=== PATIENT | female | born 1965 ===

== ENCOUNTER 2017-01-24 13:19 | Observation (INO) | payer OTHER ==
[2017-01-24 13:19] VITALS: BMI 26.5
[2017-01-24 14:25] LABS: BASO # 0.1 K/uL (0.0-0.2); BASO % 1.7 % (0.0-2.0); EOS # 0.2 K/uL (0.0-0.7); EOS % 5.2 % (0.0-4.0); HEMATOCRIT 31.7 % (34.0-47.0); LYMPH # 1.3 K/uL (1.0-4.3); LYMPH % 41.4 % (20.0-40.0); MEAN CELL VOLUME 74.6 fL (81.0-99.0); MEAN CORPUSCULAR HEMOGLOBIN 23.7 pg (27.0-31.0); MEAN CORPUSCULAR HGB CONC 31.8 g/dL (33.0-37.0); MEAN PLATELET VOLUME 9.7 fL (7.2-11.7); MONO # 0.6 K/uL (0.0-0.8); MONO % 18.2 % (0.0-10.0); NRBC % 0.1 % (0.0-2.0); RED CELL DISTRIBUTION WIDTH 19.6 % (11.5-14.5); WHITE BLOOD COUNT 3.1 K/uL (4.8-10.8)
[2017-01-24 14:38] LABS: CHLORIDE 102 mmol/L (98-107); SODIUM 139 mmol/L (132-148)
[2017-01-24 14:39] LABS: POTASSIUM 4.4 mmol/L (3.6-5.2)
[2017-01-24 14:41] LABS: ALB/GLOB RATIO 1.1 (1.0-2.1); ALKALINE PHOSPHATASE 38 U/L (38-126); ALT/SGPT 34 U/L (9-52); AST/SGOT 34 U/L (14-36); BILIRUBIN,TOTAL 0.5 mg/dL (0.2-1.3); BLOOD UREA NITROGEN 10 mg/dL (7-17); CARBON DIOXIDE 28 mmol/L (22-30); GFR AFRICAN-AMERICAN > 60; GLUCOSE,RANDOM 80 mg/dL (65-105); TOTAL PROTEIN 8.1 g/dL (6.3-8.3)
[2017-01-24 14:42] LABS: CALCIUM 9.4 mg/dl (8.6-10.4)
--- NOTE | 2017-01-24 15:12 | C.PDOC ---
Time Seen by Provider: 01/24/17 13:42 Chief Complaint (Nursing): Shortness Of Breath History Per: Patient, Family Onset/Duration Of Symptoms: Days, Intermittent Episodes Current Symptoms Are (Timing): Still Present Exacerbating Factor(s): Exertion Severity: Moderate Additional History Per: Prior Records Past Medical History Reviewed: Historical Data, Nursing Documentation, Vital Signs Vital Signs: Last Vital Signs Temp 98.0 F 01/24/17 13:32 Pulse 59 L 01/24/17 13:32 Resp 18 01/24/17 13:32 BP 123/77 01/24/17 13:32 Pulse Ox 100 01/24/17 13:32 - Medical History PMH: Anemia, CAD, HTN, Hypercholesterolemia Surgical History: CABG (2012) - [facility] Procedures CORONAR ARTERIOGR-2 CATH (11/22/12) CORONARY ARTERY STENT INSERTION [id number] (11/22/12) INJECT/INFUSE NEC (11/22/12) INJECT/INFUSE PLATELET INHIBITOR (11/22/12) INSERTION OF TWO VASCULAR STENTS (11/22/12) INTRAVASCULAR IMAGING OF CORONARY VESSELS (11/22/12) LEFT HEART CARDIAC CATH (11/22/12) LT HEART ANGIOCARDIOGRAM (11/22/12) PACKED CELL TRANSFUSION (11/22/12) PERCUTANEOUS TRANSLUMINAL CORONARY ANGIOPLASTY [PTCA] (11/22/12) PROCEDURE ON TWO VESSELS (11/22/12) PULSATION BALLOON IMPLAN (11/22/12) Family History: States: Unknown Family Hx - Social History Hx Tobacco Use: No Hx Alcohol Use: No Hx Substance Use: No - Immunization History Hx Tetanus Toxoid Vaccination: No Hx Influenza Vaccination: No Hx Pneumococcal Vaccination: No Review Of Systems Except As Marked, All Systems Reviewed And Found Negative. Constitutional: Negative for: Fever Respiratory: Positive for: SOB with Excertion Gastrointestinal: Negative for: Vomiting, Abdominal Pain Genitourinary: Positive for: Vaginal Bleeding (abnormal, on/off) Musculoskeletal: Negative for: Neck Pain, Back Pain Skin: Negative for: Rash Neurological: Negative for: Weakness, Numbness Physical Exam - Physical Exam Appears: Non-toxic, No Acute Distress Skin: Warm, Dry Head: Atraumatic, Normacephalic Eye(s): bilateral: PERRL, EOMI Neck: Normal ROM, Supple Cardiovascular: Rhythm Regular Respiratory: Normal Breath Sounds, No Accessory Muscle Use Gastrointestinal/Abdominal: Soft, No Tenderness Back: No CVA Tenderness Extremity: Normal ROM, No Calf Tenderness Neurological/Psych: Oriented x3, Normal Motor, Normal Sensation ED Course And Treatment - Laboratory Results Result Diagrams: 01/24/17 14:15 01/24/17 14:15 ECG: Interpreted By Me, Viewed By Me ECG Rhythm: Sinus Rhythm, Nonspecific Changes Rate From EC O2 Sat by Pulse Oximetry: 100 Pulse Ox Interpretation: Normal - Radiology CXR: Interpreted by Me, Viewed By Me CXR Interpretation: Yes: No Acute Disease, Other (atelectatis, CABG) - Physician Consult Information Physician Contacted: Tom Narvaez (Card.) Outcome Of Conversation: He wants pt to be admitted on hospitalist service and he will see pt in the hospital. Progress - Interventions Interventions:: Observation - Medications Administered Oral: Aspirin - Data Reviewed Data Reviewed: Lab, Diagnostic imaging, EKG, Old records - Continuity of Care Discussed patient case with:: Patient, Family-HIPPA compliant, ED Nurse, On- call PMD-pt unassigned Discussed pt. case with telecommunications consultant/specialty: Cardiology Disposition Discussed With DrNilda: Gerson Prater Comment: He accepted pt on hospitalist service. Doctor Will See Patient In The: Hospital Counseled Patient/Family Regarding: Studies Performed, Diagnosis - Disposition Disposition: HOSPITALIZED Disposition Time: 15:13 Condition: FAIR - Clinical Impression Clinical Impression: Dyspnea on exertion, CAD (coronary artery disease)
--- NOTE | 2017-01-24 16:31 | RAD ---
PROCEDURE: CHEST RADIOGRAPH, 1 VIEW HISTORY: SOB COMPARISON: 11/22/2012 FINDINGS: LUNGS: Clear. PLEURA: No pneumothorax or pleural fluid seen. CARDIOVASCULAR: No radiographic findings to suggest acute or significant cardiovascular disease. Incidental Finding(s): Postoperative changes related to sternotomy. OSSEOUS STRUCTURES: No significant abnormalities. VISUALIZED UPPER ABDOMEN: Normal. OTHER FINDINGS: None. IMPRESSION: No active disease. No acute/significant interval changes. Please note: No preliminary report/ innterpretation of this examination provided by emergency department personnel.
--- NOTE | 2017-01-24 16:50 | CP.PCM.HP ---
<Amanda Alonso - Last Filed: 01/24/17 16:41> History of Present Illness - History of Present Illness History of Present Illness: CC: "abnormal stress test" HPI: 51 year old female with PMHx of [place] s/p cardiac stents, CABG, and uterine fibroids presents after being sent in by her front office coordinator Dr Narvaez. Per patient , she had an abnormal stress test several months ago. The patient was also diagnosed with uterine fibroids earlier this year after having vaginal bleeding for 20 days. She went to see her automation clerk Dr Dana Strong who is planning on doing an endometrial biopsy to rule out malignancy. However, due to the patient's cardiac history she requires cardiac clearance and another stress test. The patient is to be admitted for stress test and further cardiac workup prior to EMB. The patient denies vaginal bleeding at this time. LMP was . Patient currently has no complaints and denies fever, chills, chest pain, shortness of breath, palpitations, cough, recent illness, headache, dizziness, focal weakness, abdominal pain, numbness, tingling, and urinary symptoms. PMD: Dr Bryan Ferrell in [place] automation clerk: Dr Dana Strong in [place] PMHx: [place] s/p cardiac stents, CABG, and uterine fibroids Meds: ASA 81mg PO daily, COreg 3.125mg PO daily, Ferrous gluconate 324mg PO daily, Crestor 5mg PO HS Family Hx: Mom- HTN; Dad- dementia Surgical Hx: CABG 2012, cardiac cath with stents 2012 Social Hx: Drinks wine during holidays, denies tobacco use, denies illicit drug use; currently on disability for heart condition Allergies: NKDA Code status: Full code Present on Admission - Present on Admission Any Indicators Present on Admission: No Review of Systems - Constitutional Constitutional: As Per HPI. absent: Chills - EENT Eyes: As Per HPI. absent: Change in Vision Ears: As Per HPI. absent: Dizziness Nose/Mouth/Throat: As Per HPI. absent: Sore Throat - Cardiovascular Cardiovascular: As Per HPI. absent: Chest Pain, Chest Pain at Rest, Diaphoresis , Dyspnea, Palpitations - Respiratory Respiratory: As Per HPI. absent: Cough, Dyspnea, Chest Congestion - Gastrointestinal Gastrointestinal: As Per HPI. absent: Abdominal Pain, Constipation, Diarrhea, Nausea, Vomiting - Genitourinary Genitourinary: As Per HPI. absent: Change in Urinary Stream, Difficulty Urinating, Dysuria, Hematuria - Reproductive: Female Reproductive:Female: As Per HPI, Menses >/= 8 Days, Heavy Menses. absent: Currently Menstual - Musculoskeletal Musculoskeletal: As Per HPI. absent: Back Pain, Muscle Weakness, Numbness, Tingling - Integumentary Integumentary: As Per HPI. absent: New Lesions, Rash - Neurological Neurological: As Per HPI. absent: Abnormal Gait, Abnormal Hearing, Dizziness, Headaches, Paresthesias, Tingling, Weakness - Psychiatric Psychiatric: As Per HPI. absent: Anxiety, Depression - Endocrine Endocrine: As Per HPI. absent: Fatigue, Palpitations Past Patient History - Past Social History Smoking Status: Never Smoked - CARDIAC Hx Hypercholesterolemia: Yes Hx Hypertension: Yes - HEMATOLOGICAL/ONCOLOGICAL Hx Anemia: Yes - MUSCULOSKELETAL/RHEUMATOLOGICAL Hx Falls: No - PSYCHIATRIC Hx Substance Use: No - SURGICAL HISTORY Hx Coronary Artery Bypass Graft: Yes (2012) - ANESTHESIA Hx Anesthesia: Yes Hx Anesthesia Reactions: No Meds Allergies/Adverse Reactions: Allergies Allergy/AdvReac Type Severity Reaction Status Date / Time No Known Allergies Allergy Verified 01/24/17 13:31 Physical Exam - Constitutional Appears: Well, Non-toxic, No Acute Distress - Head Exam Head Exam: ATRAUMATIC, NORMOCEPHALIC - Eye Exam Eye Exam: EOMI, Normal appearance, PERRL Pupil Exam: NORMAL ACCOMODATION - ENT Exam ENT Exam: Mucous Membranes Moist, Normal Exam - Neck Exam Neck exam: Positive for: Normal Inspection - Respiratory Exam Respiratory Exam: Clear to Auscultation Bilateral, NORMAL BREATHING PATTERN. absent: Accessory Muscle Use, Rhonchi, Wheezes, Respiratory Distress, Stridor - Cardiovascular Exam Cardiovascular Exam: REGULAR RHYTHM, +S1, +S2. absent: Bradycardia, Tachycardia , Irregular Rhythm, Systolic Murmur - GI/Abdominal Exam GI & Abdominal Exam: Normal Bowel Sounds. absent: Distended, Firm, Guarding, Tenderness - Extremities Exam Extremities exam: Positive for: full ROM, normal inspection, pedal pulses present. Negative for: joint swelling, pedal edema - Back Exam Back exam: NORMAL INSPECTION. absent: CVA tenderness (L), CVA tenderness (R), paraspinal tenderness - Neurological Exam Neurological exam: Alert, CN II-XII Intact, Oriented x3, Reflexes Normal - Psychiatric Exam Psychiatric exam: Normal Affect, Normal Mood - Skin Skin Exam: Dry, Intact, Normal Color, Warm Results - Vital Signs Recent Vital Signs: Last Vital Signs Temp 98.0 F 01/24/17 13:32 Pulse 59 L 01/24/17 13:32 Resp 18 01/24/17 14:20 BP 123/77 01/24/17 13:32 Pulse Ox 100 01/24/17 15:14 - Labs Result Diagrams: 01/24/17 14:15 01/24/17 14:15 Labs: Laboratory Results - last 24 hr 01/24/17 01/24/17 14:15 14:15 WBC 3.1 L RBC 4.25 Hgb 10.1 L Hct 31.7 L MCV 74.6 L MCH 23.7 L MCHC 31.8 L RDW 19.6 H Plt Count 200 MPV 9.7 Neut % (Auto) 33.5 L Lymph % (Auto) 41.4 H [place] % (Auto) 18.2 H Eos % (Auto) 5.2 H Baso % (Auto) 1.7 Neut # 1.0 L Lymph # 1.3 [place] # 0.6 Eos # 0.2 Baso # 0.1 Sodium 139 Potassium 4.4 Chloride 102 Carbon Dioxide 28 Anion Gap 13 BUN 10 Creatinine 0.7 Est GFR ( Amer) > 60 Est GFR (Non-Af Amer) > 60 Random Glucose 80 Calcium 9.4 Total Bilirubin 0.5 AST 34 ALT 34 Alkaline Phosphatase 38 Troponin I < 0.0120 NT-Pro-B Natriuret Pep 140 Total Protein 8.1 Albumin 4.2 Globulin 3.9 Albumin/Globulin Ratio 1.1 Assessment & Plan - Assessment and Plan (Free Text) Assessment: 1. Abnormal stress test * Admit to tele/obs * Paint Sprayer Sandblaster Dr Narvaez consulted- will f/u recommendations * NPO after midnight for possible stress test in AM * f/u EKG * f/u Chest X-ray 2. Hx CAD with CABG * Continue home meds: Coreg 3.125mg PO daily, ASA 81mg PO daily, Crestor 5mg PO HS 3. Uterine fibroids * Will obtain cardiac clearance from Dr Narvaez. Patient to follow up with her OB/ Meat Team Lead Dr Strong as outpatient for biopsy and further workup. 4. Iron Deficiency anemia * Hgb/Hct stable * Continue home med: Iron 324mg PO daily * check CBC daily 5. Prophylactic measures * DVT risk score 1: SCDs * Pepcid 20mg PO BID * Heart healthy diet <RahmanMando garcia H - Last Filed: 01/24/17 17:44> Results - Vital Signs Recent Vital Signs: Last Vital Signs Temp 97.8 F 01/24/17 17:36 Pulse 56 L 01/24/17 17:36 Resp 17 01/24/17 17:36 BP 126/72 01/24/17 17:36 Pulse Ox 98 01/24/17 17:36 - Labs Result Diagrams: 01/24/17 14:15 01/24/17 14:15 Labs: Laboratory Results - last 24 hr 01/24/17 01/24/17 14:15 14:15 WBC 3.1 L RBC 4.25 Hgb 10.1 L Hct 31.7 L MCV 74.6 L MCH 23.7 L MCHC 31.8 L RDW 19.6 H Plt Count 200 MPV 9.7 Neut % (Auto) 33.5 L Lymph % (Auto) 41.4 H [place] % (Auto) 18.2 H Eos % (Auto) 5.2 H Baso % (Auto) 1.7 Neut # 1.0 L Lymph # 1.3 [place] # 0.6 Eos # 0.2 Baso # 0.1 Sodium 139 Potassium 4.4 Chloride 102 Carbon Dioxide 28 Anion Gap 13 BUN 10 Creatinine 0.7 Est GFR ( Amer) > 60 Est GFR (Non-Af Amer) > 60 Random Glucose 80 Calcium 9.4 Total Bilirubin 0.5 AST 34 ALT 34 Alkaline Phosphatase 38 Troponin I < 0.0120 NT-Pro-B Natriuret Pep 140 Total Protein 8.1 Albumin 4.2 Globulin 3.9 Albumin/Globulin Ratio 1.1 Attending/Attestation - Attestation I have personally seen and examined this patient.: Yes I have fully participated in the care of the patient.: Yes I have reviewed all pertinent clinical information: Yes Notes (Text): 01/24/17 17:39 Medical attending: Patient was seen and examined by me, agrees the above note by mobile paramedical examiner. The patient had family members with her at bedside. She is currently under no acute distress at all. She looks very comfortable. As reported above in the medical residents note, the patient was sent in by her front office coordinator for further pre-opt testing to be done so that in the future she could have a endometrial study The patient does have a cardiac history complicated with CABG in the past. The patient will be made nothing by mouth after midnight. Monitored on telemetry Thank you very much, Mando Rahman
--- NOTE | 2017-01-24 20:27 | CP.PCM.CON ---
History of Present Illness - History of Present Illness History of Present Illness: CC: "abnormal stress test" HPI: 51 year old female with PMHx of [place] s/p cardiac stents, CABG, and uterine fibroids presents to ER. Per patient, she had an abnormal stress test several months ago. The patient was also diagnosed with uterine fibroids earlier this year after having vaginal bleeding for 20 days. She went to see her traveling missionary Dr Dana Strong who is planning on doing an endometrial biopsy to rule out malignancy. However, due to the patient's cardiac history she requires cardiac cath. The patient denies vaginal bleeding at this time. LMP was 01/09/17. Patient some times gets dyspnea and chest pain with exertion. Patient currently has no complaints and denies fever, chills, palpitations, cough, recent illness , headache, dizziness, focal weakness, abdominal pain, numbness, tingling, and urinary symptoms. PMD: Dr Bryan Ferrell in [place] traveling missionary: Dr Dana Strong in [place] PMHx: [place] s/p cardiac stents, CABG, and uterine fibroids, FMD and anemia Meds: ASA 81mg PO daily, COreg 3.125mg PO daily, Ferrous gluconate 324mg PO daily, Crestor 5mg PO HS Family Hx: Mom- HTN; Dad- dementia Surgical Hx: CABG 2012, cardiac cath with stents 2012 Social Hx: Drinks wine during holidays, denies tobacco use, denies illicit drug use; currently on disability for heart condition Allergies: NKDA Code status: Full code Present on Admission - Present on Admission Any Indicators Present on Admission: No Review of Systems - Constitutional Constitutional: As Per HPI. absent: Chills - EENT Eyes: As Per HPI. absent: Change in Vision Ears: As Per HPI. absent: Dizziness Nose/Mouth/Throat: As Per HPI. absent: Sore Throat - Cardiovascular Cardiovascular: As Per HPI. absent: Chest Pain, Chest Pain at Rest, Diaphoresis , Dyspnea, Palpitations - Respiratory Respiratory: As Per HPI. absent: Cough, Dyspnea, Chest Congestion - Gastrointestinal Gastrointestinal: As Per HPI. absent: Abdominal Pain, Constipation, Diarrhea, Nausea, Vomiting - Genitourinary Genitourinary: As Per HPI. absent: Change in Urinary Stream, Difficulty Urinating, Dysuria, Hematuria - Reproductive: Female Reproductive:Female: As Per HPI, Menses >/= 8 Days, Heavy Menses. absent: Currently Menstual - Musculoskeletal Musculoskeletal: As Per HPI. absent: Back Pain, Muscle Weakness, Numbness, Tingling - Integumentary Integumentary: As Per HPI. absent: New Lesions, Rash - Neurological Neurological: As Per HPI. absent: Abnormal Gait, Abnormal Hearing, Dizziness, Headaches, Paresthesias, Tingling, Weakness - Psychiatric Psychiatric: As Per HPI. absent: Anxiety, Depression - Endocrine Endocrine: As Per HPI. absent: Fatigue, Palpitations Meds Allergies/Adverse Reactions: Allergies Allergy/AdvReac Type Severity Reaction Status Date / Time No Known Allergies Allergy Verified 01/24/17 13:31 Physical Exam - Constitutional Appears: Well, Non-toxic, No Acute Distress - Head Exam Head Exam: ATRAUMATIC, NORMOCEPHALIC - Eye Exam Eye Exam: EOMI, Normal appearance, PERRL Pupil Exam: NORMAL ACCOMODATION - ENT Exam ENT Exam: Mucous Membranes Moist, Normal Exam - Neck Exam Neck exam: Positive for: Normal Inspection - Respiratory Exam Respiratory Exam: Clear to Auscultation Bilateral, NORMAL BREATHING PATTERN. absent: Accessory Muscle Use, Rhonchi, Wheezes, Respiratory Distress, Stridor - Cardiovascular Exam Cardiovascular Exam: REGULAR RHYTHM, +S1, +S2. absent: Bradycardia, Tachycardia , Irregular Rhythm, Systolic Murmur - GI/Abdominal Exam GI & Abdominal Exam: Normal Bowel Sounds. absent: Distended, Firm, Guarding, Tenderness - Extremities Exam Extremities exam: Positive for: full ROM, normal inspection, pedal pulses present. Negative for: joint swelling, pedal edema - Back Exam Back exam: NORMAL INSPECTION. absent: CVA tenderness (L), CVA tenderness (R), paraspinal tenderness - Neurological Exam Neurological exam: Alert, CN II-XII Intact, Oriented x3, Reflexes Normal - Psychiatric Exam Psychiatric exam: Normal Affect, Normal Mood - Skin Skin Exam: Dry, Intact, Normal Color, Warm Past Patient History - Past Social History Smoking Status: Never Smoked - CARDIAC Hx Hypercholesterolemia: Yes Hx Hypertension: Yes - HEMATOLOGICAL/ONCOLOGICAL Hx Anemia: Yes - MUSCULOSKELETAL/RHEUMATOLOGICAL Hx Falls: No - PSYCHIATRIC Hx Substance Use: No - SURGICAL HISTORY Hx Coronary Artery Bypass Graft: Yes (2012) - ANESTHESIA Hx Anesthesia: Yes Hx Anesthesia Reactions: No Meds Allergies/Adverse Reactions: Allergies Allergy/AdvReac Type Severity Reaction Status Date / Time No Known Allergies Allergy Verified 01/24/17 13:31 - Medications Medications: Current Medications Aspirin (Ecotrin) 81 mg PO DAILY [facility] Carvedilol (Coreg) 3.125 mg PO DAILY [facility] Famotidine (Pepcid) 20 mg PO BID [facility] Last Admin: 01/24/17 19:03 Dose: Not Given Ferrous Gluconate (Fergon) 324 mg PO DAILY [facility] Rosuvastatin Calcium (Crestor) 5 mg PO HS [facility] Results - Vital Signs Recent Vital Signs: Last Vital Signs Temp 98.4 F 01/24/17 19:52 Pulse 51 L 01/24/17 19:52 Resp 18 01/24/17 19:52 BP 137/77 01/24/17 19:52 Pulse Ox 98 01/24/17 19:52 - Labs Result Diagrams: 01/24/17 14:15 01/24/17 14:15 Labs: Laboratory Results - last 24 hr 01/24/17 01/24/17 14:15 14:15 WBC 3.1 L RBC 4.25 Hgb 10.1 L Hct 31.7 L MCV 74.6 L MCH 23.7 L MCHC 31.8 L RDW 19.6 H Plt Count 200 MPV 9.7 Neut % (Auto) 33.5 L Lymph % (Auto) 41.4 H [place] % (Auto) 18.2 H Eos % (Auto) 5.2 H Baso % (Auto) 1.7 Neut # 1.0 L Lymph # 1.3 [place] # 0.6 Eos # 0.2 Baso # 0.1 Sodium 139 Potassium 4.4 Chloride 102 Carbon Dioxide 28 Anion Gap 13 BUN 10 Creatinine 0.7 Est GFR ( Amer) > 60 Est GFR (Non-Af Amer) > 60 Random Glucose 80 Calcium 9.4 Total Bilirubin 0.5 AST 34 ALT 34 Alkaline Phosphatase 38 Troponin I < 0.0120 NT-Pro-B Natriuret Pep 140 Total Protein 8.1 Albumin 4.2 Globulin 3.9 Albumin/Globulin Ratio 1.1 Assessment & Plan - Assessment and Plan (Free Text) Assessment: 1. Abnormal stress test and exertional chest symptoms * Admit to tele * NPO after midnight for cardiac cath in the afternoon 2. Hx CAD with CABG * Continue home meds: Coreg 3.125mg PO daily, ASA 81mg PO daily, Crestor 5mg PO HS 3. 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 Uterine fibroids * Will obtain cardiac clearance from Dr Narvaez. Patient to follow up with her OB/ Applications Administrator Dr Strong as outpatient for biopsy and further workup. * Consult Dr. Strong 5. Iron Deficiency anemia * Hgb/Hct stable * Continue home med: Iron 324mg PO daily * check CBC daily 6. Prophylactic measures * DVT risk score 1: SCDs * Pepcid 20mg PO BID * Heart healthy diet
[2017-01-25 01:28] VITALS: RESP 20
[2017-01-25 08:04] LABS: BASO % 0.6 % (0.0-2.0); EOS # 0.2 K/uL (0.0-0.7); EOS % 5.5 % (0.0-4.0); HEMATOCRIT 32.9 % (34.0-47.0); LYMPH # 1.2 K/uL (1.0-4.3); LYMPH % 42.8 % (20.0-40.0); MEAN CELL VOLUME 74.4 fL (81.0-99.0); MEAN CORPUSCULAR HEMOGLOBIN 23.9 pg (27.0-31.0); MEAN CORPUSCULAR HGB CONC 32.2 g/dL (33.0-37.0); MEAN PLATELET VOLUME 9.6 fL (7.2-11.7); MONO # 0.4 K/uL (0.0-0.8); MONO % 13.6 % (0.0-10.0); NRBC % 0.2 % (0.0-2.0); RED CELL DISTRIBUTION WIDTH 18.9 % (11.5-14.5); WHITE BLOOD COUNT 2.9 K/uL (4.8-10.8)
[2017-01-25 09:15] LABS: CHLORIDE 102 mmol/L (98-107); POTASSIUM 4.2 mmol/L (3.6-5.2); SODIUM 136 mmol/L (132-148)
[2017-01-25 09:17] LABS: GFR AFRICAN-AMERICAN > 60
[2017-01-25 09:18] LABS: BLOOD UREA NITROGEN 14 mg/dL (7-17); CALCIUM 9.1 mg/dl (8.6-10.4); CARBON DIOXIDE 26 mmol/L (22-30); GLUCOSE,RANDOM 78 mg/dL (65-105)
[2017-01-25] MEDS ORDERED: Midazolam 2 MG/2 ML VIAL ONE (12:30)
[2017-01-25] MEDS ORDERED: Iohexol 350mg/ml 100 ML ONE (13:22)
--- NOTE | 2017-01-25 16:19 | CP.PCM.PN ---
<Kym Louiea - Last Filed: 01/25/17 16:23> Subjective - Date & Time of Evaluation Date of Evaluation: 01/25/17 Time of Evaluation: 09:00 - Subjective Subjective: Medicine Note for Dr. Ortez Patient was seen and examined at bedside. No acute complaints. Patient is for cardiac cath today, plan for discharge tomorrow. Denied fever, chills, headache , chest pain, abdominal pain, n/v/d/c, or urinary symptoms. Objective - Vital Signs/Intake and Output Vital Signs (last 24 hours): Temp Pulse Resp BP Pulse Ox 97.6 F 55 L 20 118/74 98 01/25/17 15:29 01/25/17 15:29 01/25/17 15:29 01/25/17 15:29 01/25/17 15:29 Intake and Output: 01/25/17 01/25/17 06:59 18:59 Intake Total 400 100 Balance 400 100 - Medications Medications: Current Medications Acetaminophen (Tylenol 325mg Tab) 650 mg PO Q6 PRN PRN Reason: Pain, Mild (1-3) Aspirin (Ecotrin) 81 mg PO DAILY [facility] Last Admin: 01/25/17 10:40 Dose: 81 mg Carvedilol (Coreg) 3.125 mg PO DAILY [facility] Last Admin: 01/25/17 10:38 Dose: 3.125 mg Famotidine (Pepcid) 20 mg PO BID [facility] Last Admin: 01/25/17 10:42 Dose: Not Given Ferrous Gluconate (Fergon) 324 mg PO DAILY [facility] Last Admin: 01/25/17 10:38 Dose: 324 mg Heparin Sodium (Porcine) (Heparin) 5,000 units SC Q12 [facility] Sodium Chloride (Sodium Chloride 0.9%) 1,000 mls @ 100 mls/hr IV .Q10H [facility] Stop: 01/26/17 01:30 Pneumococcal Polyvalent Vaccine (Pneumovax 23 Vaccine) 0.5 ml IM .ONCE ONE Stop: 01/27/17 10:01 Rosuvastatin Calcium (Crestor) 5 mg PO HS [facility] - Labs Labs: 01/25/17 07:52 01/25/17 08:55 - Additional Findings Additional findings: - Head Exam Head Exam: ATRAUMATIC, NORMOCEPHALIC - Eye Exam Eye Exam: EOMI, Normal appearance, PERRL Pupil Exam: NORMAL ACCOMODATION - ENT Exam ENT Exam: Mucous Membranes Moist, Normal Exam - Neck Exam Neck exam: Positive for: Normal Inspection - Respiratory Exam Respiratory Exam: Clear to Auscultation Bilateral, NORMAL BREATHING PATTERN. absent: Accessory Muscle Use, Rhonchi, Wheezes, Respiratory Distress, Stridor - Cardiovascular Exam Cardiovascular Exam: REGULAR RHYTHM, +S1, +S2. absent: Bradycardia, Tachycardia , Irregular Rhythm, Systolic Murmur - GI/Abdominal Exam GI & Abdominal Exam: Normal Bowel Sounds. absent: Distended, Firm, Guarding, Tenderness - Extremities Exam Extremities exam: Positive for: full ROM, normal inspection, pedal pulses present. Negative for: joint swelling, pedal edema - Back Exam Back exam: NORMAL INSPECTION. absent: CVA tenderness (L), CVA tenderness (R), paraspinal tenderness - Neurological Exam Neurological exam: Alert, CN II-XII Intact, Oriented x3, Reflexes Normal - Psychiatric Exam Psychiatric exam: Normal Affect, Normal Mood - Skin Skin Exam: Dry, Intact, Normal Color, Warm Assessment and Plan - Assessment and Plan (Free Text) Plan: Abnormal stress test * Cardiology consulted- Dr Narvaez - help appreciated * Patient had an abnormal stress test, performed by several months ago. * EKG: NSR @ 60 BPM * Chest X-ray: No active disease * Patient had a Cardiac Cath today - pending official results * DC tomorrow Hx CAD with CABG * Continue home meds: Coreg 3.125mg PO daily, ASA 81mg PO daily, Crestor 5mg PO HS * F/U ECHO, lipid panel, hga1c Uterine fibroids * Will obtain cardiac clearance from Dr Narvaez. * Patient to follow up with her credit report checker Dr Strong as outpatient for biopsy and further workup. Iron Deficiency anemia * Hgb/Hct stable * Continue home med: Iron 324mg PO daily * Check CBC daily Prophylactic measures * GI PPX: Pepcid 20mg PO BID * DVT PPX: DVT risk score 1: SCDs * Heart healthy diet DW OK Purcell DO, PGY-1 <Del Young - Last Filed: 01/25/17 19:11> Objective - Vital Signs/Intake and Output Vital Signs (last 24 hours): Temp Pulse Resp BP Pulse Ox 97.6 F 55 L 20 118/74 98 01/25/17 15:29 01/25/17 15:29 01/25/17 15:29 01/25/17 15:29 01/25/17 15:29 Intake and Output: 01/25/17 01/25/17 06:59 18:59 Intake Total 400 100 Balance 400 100 - Medications Medications: Current Medications Acetaminophen (Tylenol 325mg Tab) 650 mg PO Q6 PRN PRN Reason: Pain, Mild (1-3) Aspirin (Ecotrin) 81 mg PO DAILY [facility] Last Admin: 01/25/17 10:40 Dose: 81 mg Carvedilol (Coreg) 3.125 mg PO DAILY [facility] Last Admin: 01/25/17 10:38 Dose: 3.125 mg Famotidine (Pepcid) 20 mg PO BID [facility] Last Admin: 01/25/17 10:42 Dose: Not Given Ferrous Gluconate (Fergon) 324 mg PO DAILY [facility] Last Admin: 01/25/17 10:38 Dose: 324 mg Heparin Sodium (Porcine) (Heparin) 5,000 units SC Q12 [facility] Sodium Chloride (Sodium Chloride 0.9%) 1,000 mls @ 100 mls/hr IV .Q10H [facility] Stop: 01/26/17 01:30 Last Admin: 01/25/17 17:14 Dose: 100 mls/hr Pneumococcal Polyvalent Vaccine (Pneumovax 23 Vaccine) 0.5 ml IM .ONCE ONE Stop: 01/27/17 10:01 Rosuvastatin Calcium (Crestor) 5 mg PO HS [facility] - Labs Labs: 01/25/17 07:52 01/25/17 08:55 Attending/Attestation - Attestation I have personally seen and examined this patient.: Yes I have fully participated in the care of the patient.: Yes I have reviewed all pertinent clinical information, including history, physical exam and plan: Yes Notes (Text): This is a 51years old female with history of CAD,CABG and uterine fibroids was admitted for cardiac cath.She had positive stress test needed cardiac cath before fibroid biopsy to rule out malignancy.S/P cardiac cath By Dr Narvaez this afternoon.Patient was seen and examined.No complain,denies pain. 1.Abnormal stress test-s/p cath.nonobstructive coronaries.official report pending.follow report ,observe tonight and discharge in the morning 2.CAD,s/p CABG-continue home meds coreg asprin and crestor 3.Iron deficieny anemia-continue iron,stable HCT 4.uterine fibroids-follow regulatory compliance coordinator/obs 5.continue SCD for DVT PPX and GI PPX 01/25/17 19:08 01/25/17 19:11
[2017-01-25] MEDS: Sodium Chloride 0.9% 1,000 ML IV SCH (17:14)
--- NOTE | 2017-01-25 17:42 | CP.PCM.PN ---
Subjective - Date & Time of Evaluation Date of Evaluation: 01/25/17 Time of Evaluation: 17:39 - Subjective Subjective: Patient s/p Cath Non Obstructive coronaries Prior Left Main and LAD stent patent Mild to moderate RCA disease CASTELLANOS and MACI became atretic Normal EF Medical management. No coronary intervention needed Objective - Vital Signs/Intake and Output Vital Signs (last 24 hours): Temp Pulse Resp BP Pulse Ox 97.6 F 55 L 20 118/74 98 01/25/17 15:29 01/25/17 15:29 01/25/17 15:29 01/25/17 15:29 01/25/17 15:29 Intake and Output: 01/25/17 01/25/17 06:59 18:59 Intake Total 400 100 Balance 400 100 - Medications Medications: Current Medications Acetaminophen (Tylenol 325mg Tab) 650 mg PO Q6 PRN PRN Reason: Pain, Mild (1-3) Aspirin (Ecotrin) 81 mg PO DAILY [facility] Last Admin: 01/25/17 10:40 Dose: 81 mg Carvedilol (Coreg) 3.125 mg PO DAILY [facility] Last Admin: 01/25/17 10:38 Dose: 3.125 mg Famotidine (Pepcid) 20 mg PO BID [facility] Last Admin: 01/25/17 10:42 Dose: Not Given Ferrous Gluconate (Fergon) 324 mg PO DAILY [facility] Last Admin: 01/25/17 10:38 Dose: 324 mg Heparin Sodium (Porcine) (Heparin) 5,000 units SC Q12 [facility] Sodium Chloride (Sodium Chloride 0.9%) 1,000 mls @ 100 mls/hr IV .Q10H [facility] Stop: 01/26/17 01:30 Last Admin: 01/25/17 17:14 Dose: 100 mls/hr Pneumococcal Polyvalent Vaccine (Pneumovax 23 Vaccine) 0.5 ml IM .ONCE ONE Stop: 01/27/17 10:01 Rosuvastatin Calcium (Crestor) 5 mg PO HS [facility] - Labs Labs: 01/25/17 07:52 01/25/17 08:55
--- NOTE | 2017-01-25 21:42 | CARD ---
APPROVED REPORT EKG Measurement Heart [id number] [id number] <Conclusion> Normal sinus rhythm Nonspecific T wave abnormality Abnormal ECG
--- NOTE | 2017-01-25 23:46 | CARD ---
APPROVED REPORT EXAM: Two-dimensional and M-mode echocardiogram with Doppler and color Doppler. Other Information Quality : GoodRhythm : INDICATION Dyspnea CAD HX OF CABG AND WA 2D DIMENSIONS IVSd0.9 (0.7-1.1cm)LVDd4.4 (3.9-5.9cm) PWd1.1 (0.7-1.1cm)LVDs3.0 (2.5-4.0cm) FS (%) 31.5 %LVEF (%)59.7 (>50%) M-Mode DIMENSIONS RVDd1.78 (2.1-3.2cm)Left Atrium (MM)3.73 (2.5-4.0cm) IVSd0.79 (0.7-1.1cm)Aortic Root2.58 (2.2-3.7cm) LVDd5.36 (4.0-5.6cm)Aortic Cusp Exc.1.80 (1.5-2.0cm) PWd0.70 (0.7-1.1cm)FS (%) 46 % LVDs2.88 (2.0-3.8cm)LVEF (%)77 (>50%) Mitral Valve MV E Mimdmxea64.3cm/sMV A Fmcwgryf13.2cm/sE/A ratio0.9 TDI E/Lateral E'0.0E/Medial E'0.0 Tricuspid Valve TR Peak Cmvibtdf380sh/sTR Peak Gr.[id number] LEFT VENTRICLE The left ventricle is normal size. There is normal left ventricular wall thickness. Left ventricle systolic function is normal. The Ejection Fraction is 55-60%. There is normal LV segmental wall motion. The left ventricular diastolic function is abnormal. Transmitral Doppler flow pattern is Grade I-abnormal relaxation pattern. No left ventricle thrombus noted on this study. RIGHT VENTRICLE The right ventricle is normal size. There is normal right ventricular wall thickness. The right ventricular systolic function is normal. ATRIA The left atrium size is normal. The right atrium size is normal. AORTIC VALVE The aortic valve is mildly sclerotic. No aortic regurgitation is present. There is no aortic valvular stenosis. There is no aortic valvular vegetation. MITRAL VALVE Mitral annular calcification is mild. There is no evidence of mitral valve prolapse. There is no mitral valve stenosis. Mitral regurgitation is mild to moderate. TRICUSPID VALVE The tricuspid valve is normal in structure. There is mild to moderate tricuspid regurgitation. Right ventricular systolic pressure is estimated at 30-40 mmHg. There is no pulmonary hypertension. There is no tricuspid valve prolapse or vegetation. PULMONIC VALVE The pulmonic valve is not well visualized. There is no pulmonic valvular regurgitation. There is no pulmonic valvular stenosis. GREAT VESSELS The aortic root is normal in size. The IVC is normal in size and collapses >50% with inspiration. PERICARDIAL EFFUSION There is no pericardial effusion. There is no pleural effusion. <Conclusion> The left ventricle is normal size. Left ventricle systolic function is normal. The Ejection Fraction is 55-60%. The right ventricle is normal size. The right ventricular systolic function is normal. The left ventricular diastolic function is abnormal. The left atrium size is normal. The right atrium size is normal. Mitral regurgitation is mild to moderate. There is mild to moderate tricuspid regurgitation. There is no pulmonary hypertension.
[2017-01-26] MEDS: Sodium Chloride 0.9% 1,000 ML IV SCH (00:08)
--- NOTE | 2017-01-26 07:41 | CP.PCM.DIS ---
Provider - Provider Date of Admission: 01/24/17 15:14 Attending physician: Mando Rahman DO Consults: Cardio: Dr. Narvaez Time Spent in preparation of Discharge (in minutes): 55 Hospital Course - Lab Results Lab Results: Most Recent Lab Values WBC 2.9 K/uL (4.8-10.8) L 01/25/17 07:52 RBC 4.43 Mil/uL (3.80-5.20) 01/25/17 07:52 Hgb 10.6 g/dL (11.0-16.0) L 01/25/17 07:52 Hct 32.9 % (34.0-47.0) L 01/25/17 07:52 MCV 74.4 fL (81.0-99.0) L 01/25/17 07:52 MCH 23.9 pg (27.0-31.0) L 01/25/17 07:52 MCHC 32.2 g/dL (33.0-37.0) L 01/25/17 07:52 RDW 18.9 % (11.5-14.5) H 01/25/17 07:52 Plt Count 196 K/uL (130-400) 01/25/17 07:52 MPV 9.6 fL (7.2-11.7) 01/25/17 07:52 Neut % (Auto) 37.5 % (50.0-75.0) L 01/25/17 07:52 Lymph % (Auto) 42.8 % (20.0-40.0) H 01/25/17 07:52 [place] % (Auto) 13.6 % (0.0-10.0) H 01/25/17 07:52 Eos % (Auto) 5.5 % (0.0-4.0) H 01/25/17 07:52 Baso % (Auto) 0.6 % (0.0-2.0) 01/25/17 07:52 Neut # 1.1 K/uL (1.8-7.0) L 01/25/17 07:52 Lymph # 1.2 K/uL (1.0-4.3) 01/25/17 07:52 [place] # 0.4 K/uL (0.0-0.8) 01/25/17 07:52 Eos # 0.2 K/uL (0.0-0.7) 01/25/17 07:52 Baso # 0.0 K/uL (0.0-0.2) 01/25/17 07:52 Sodium 136 mmol/L (132-148) 01/25/17 08:55 Potassium 4.2 mmol/L (3.6-5.2) 01/25/17 08:55 Chloride 102 mmol/L (98-107) 01/25/17 08:55 Carbon Dioxide 26 mmol/L (22-30) 01/25/17 08:55 Anion Gap 12 (10-20) 01/25/17 08:55 BUN 14 mg/dL (7-17) 01/25/17 08:55 Creatinine 0.8 mg/dL (0.7-1.2) 01/25/17 08:55 Est GFR ( Amer) > 60 01/25/17 08:55 Est GFR (Non-Af Amer) > 60 01/25/17 08:55 Random Glucose 78 mg/dL (65-105) 01/25/17 08:55 Calcium 9.1 mg/dl (8.6-10.4) 01/25/17 08:55 Total Bilirubin 0.5 mg/dL (0.2-1.3) 01/24/17 14:15 AST 34 U/L (14-36) 01/24/17 14:15 ALT 34 U/L (9-52) 01/24/17 14:15 Alkaline Phosphatase 38 U/L (38-126) 01/24/17 14:15 Troponin I < 0.0120 ng/mL (0.00-0.120) 01/24/17 14:15 NT-Pro-B Natriuret Pep 140 pg/mL (0-450) 01/24/17 14:15 Total Protein 8.1 g/dL (6.3-8.3) 01/24/17 14:15 Albumin 4.2 g/dL (3.5-5.0) 01/24/17 14:15 Globulin 3.9 gm/dL (2.2-3.9) 01/24/17 14:15 Albumin/Globulin Ratio 1.1 (1.0-2.1) 01/24/17 14:15 - Hospital Course Hospital Course: Upon Admission: CC: "abnormal stress test" HPI: 51 year old female with PMHx of CA s/p cardiac stents, CABG, and uterine fibroids presents after being sent in by her inside sales supervisor Dr Narvaez. Per patient , she had an abnormal stress test several months ago. The patient was also diagnosed with uterine fibroids earlier this year after having vaginal bleeding for 20 days. She went to see her foster parent Dr Dana Strong who is planning on doing an endometrial biopsy to rule out malignancy. However, due to the patient's cardiac history she requires cardiac clearance and another stress test. The patient is to be admitted for stress test and further cardiac workup prior to EMB. The patient denies vaginal bleeding at this time. LMP was . Patient currently has no complaints and denies fever, chills, chest pain, shortness of breath, palpitations, cough, recent illness, headache, dizziness, focal weakness, abdominal pain, numbness, tingling, and urinary symptoms. PMD: Dr Bryan Ferrell in [place] foster parent: Dr Dana Strong in [place] PMHx: CA s/p cardiac stents, CABG, and uterine fibroids Meds: ASA 81mg PO daily, COreg 3.125mg PO daily, Ferrous gluconate 324mg PO daily, Crestor 5mg PO HS Family Hx: Mom- HTN; Dad- dementia Surgical Hx: CABG 2012, cardiac cath with stents 2012 Social Hx: Drinks wine during holidays, denies tobacco use, denies illicit drug use; currently on disability for heart condition Allergies: NKDA Code status: Full code Throughout Hospital Course: Patient was admitted for an abnormal stress test, requiring cardiac clearance for EMB. Patient was admitted and underwent a cardiac catherization with Dr. Narvaez. She was kept overnight s/p catherization to monitor catherization site. As per Dr. Narvaez: Non Obstructive coronaries. Prior Left Main and LAD stent patent. Mild to moderate RCA disease. CASTELLANOS and MACI became atretic. Normal EF. Medical management. No coronary intervention needed Patient is to follow up with her PMD, Dr. Strong within 1 week. She is to also schedule her EMB. This is a brief summary of the patient's hospital course. Please review EMR for full record. Discharge Exam - Additional Findings Additional findings: - Head Exam Head Exam: ATRAUMATIC, NORMOCEPHALIC - Eye Exam Eye Exam: EOMI, Normal appearance, PERRL Pupil Exam: NORMAL ACCOMODATION - ENT Exam ENT Exam: Mucous Membranes Moist, Normal Exam - Neck Exam Neck exam: Positive for: Normal Inspection - Respiratory Exam Respiratory Exam: Clear to Auscultation Bilateral, NORMAL BREATHING PATTERN. absent: Accessory Muscle Use, Rhonchi, Wheezes, Respiratory Distress, Stridor - Cardiovascular Exam Cardiovascular Exam: REGULAR RHYTHM, +S1, +S2. absent: Bradycardia, Tachycardia , Irregular Rhythm, Systolic Murmur - GI/Abdominal Exam GI & Abdominal Exam: Normal Bowel Sounds. absent: Distended, Firm, Guarding, Tenderness - Extremities Exam Extremities exam: Positive for: full ROM, normal inspection, pedal pulses present. Negative for: joint swelling, pedal edema - Back Exam Back exam: NORMAL INSPECTION. absent: CVA tenderness (L), CVA tenderness (R), paraspinal tenderness - Neurological Exam Neurological exam: Alert, CN II-XII Intact, Oriented x3, Reflexes Normal - Psychiatric Exam Psychiatric exam: Normal Affect, Normal Mood - Skin Skin Exam: Dry, Intact, Normal Color, Warm Discharge Plan - Discharge Medications Prescriptions: Aspirin [Ecotrin] 81 mg PO DAILY #30 tabec Atorvastatin [Lipitor] 10 mg PO DAILY #30 tab Carvedilol [Coreg] 3.125 mg PO DAILY #30 tab Ferrous Gluconate 324 mg PO DAILY #30 tablet - Follow Up Plan Condition: GOOD Disposition: HOME/ ROUTINE Instructions: Coronary Artery Disease (DC), Coronary Artery Disease (GEN), Uterine Fibroids (DC), Myomectomy (DC), Dyspnea (GEN), Heart Catheterization (DC ), Heart Catheterization (GEN), Coronary Artery Disease in Women (DC), Coronary Artery Disease in Women (GEN) Additional Instructions: Patient is to follow up with her PMD, Dr. Strong within 1 week. She is to also schedule her EMB. Please continue the following medications as listed on the sheet provided at discharge. Please follow up with Dr. Narvaez as needed. Please return to the Emergency Department if your symptoms worsen or return. La paciente debe hacer un seguimiento con avalos PMD, Dr. Culp dentro de felix semana. Ángela tambin programar avalos EMB. Por favor, contine con los siguientes medicamentos que figuran en la hoja provista al elma. Por favor, siga con el Dr. Narvaez segn sea necesario. Por favor regrese al [facility]amento [facility] Emergencias si dania sntomas empeoran o regresan. Referrals: Tom Narvaez MD [Staff Provider] - Dana Strong MD [Staff Provider] -
[2017-01-26 08:47] VITALS: BP 126/76; PULSE 66; TEMP 97.8; O2SAT 98
[2017-01-26 09:11] LABS: BASO % 0.9 % (0.0-2.0); EOS # 0.1 K/uL (0.0-0.7); EOS % 2.9 % (0.0-4.0); HEMATOCRIT 35.5 % (34.0-47.0); LYMPH # 1.4 K/uL (1.0-4.3); MEAN CELL VOLUME 74.2 fL (81.0-99.0); MEAN CORPUSCULAR HEMOGLOBIN 23.5 pg (27.0-31.0); MEAN CORPUSCULAR HGB CONC 31.7 g/dL (33.0-37.0); MEAN PLATELET VOLUME 9.5 fL (7.2-11.7); MONO # 0.3 K/uL (0.0-0.8); RED CELL DISTRIBUTION WIDTH 19.3 % (11.5-14.5); WHITE BLOOD COUNT 3.7 K/uL (4.8-10.8)
[2017-01-26 09:32] LABS: CHLORIDE 102 mmol/L (98-107); SODIUM 137 mmol/L (132-148)
[2017-01-26 09:33] LABS: POTASSIUM 3.8 mmol/L (3.6-5.2)
[2017-01-26 09:34] LABS: CARBON DIOXIDE 25 mmol/L (22-30); CHOLESTEROL 164 mg/dL (0-199); GFR AFRICAN-AMERICAN > 60
[2017-01-26 09:35] LABS: ALB/GLOB RATIO 1.2 (1.0-2.1); ALKALINE PHOSPHATASE 44 U/L (38-126); ALT/SGPT 32 U/L (9-52); AST/SGOT 31 U/L (14-36); BILIRUBIN,TOTAL 0.6 mg/dL (0.2-1.3); BLOOD UREA NITROGEN 11 mg/dL (7-17); GLUCOSE,RANDOM 82 mg/dL (65-105); TOTAL PROTEIN 7.8 g/dL (6.3-8.3)
[2017-01-26 09:36] LABS: CALCIUM 9.1 mg/dl (8.6-10.4); MAGNESIUM 2.1 mg/dL (1.6-2.3); PHOSPHOROUS 3.2 mg/dL (2.5-4.5)
[2017-01-27] MEDS ORDERED: Pneumococcal 23-Valent Vaccine IM ONE (10:00)
[2017-01-27] MEDS ORDERED: Influenza Vaccine 60 mcg/0.5 mL SYR (4YR UP) IM ONE (10:00)
--- NOTE | 2017-02-01 06:18 | CARDCATH ---
PROCEDURE DATE: 01/25/2017 PROCEDURES: 1. Left heart catheterization, left ventricle angiogram, coronary angiogram, CASTELLANOS and MACI angiograms. 2. Abdominal aortogram. 3. Bilateral lower extremity arterial angiogram. 4. Radiological imaging supervision and radiological imaging interpretation of the above-mentioned procedures. PERFORMING PHYSICIAN: Tom Narvaez MD CLINICAL INDICATIONS: 1. Unstable angina. 2. 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 3. History of coronary artery disease, status post CABG x2. 4. Hypertension. 5. Hyperlipidemia. 6. Fibromuscular dysplasia. PROCEDURE: After informed consent, the patient was prepped and draped in the usual sterile fashion. Lidocaine, 2% was given in the right groin for local anesthesia. Using micropuncture technique, 6-[place] sheath was introduced into right common femoral artery. A 6-[place] JL4 diagnostic catheter engaged into left main coronary artery. Radiocontrast injected and left coronary angiogram was performed. A 6-[place] JR4 diagnostic catheter was engaged into right coronary artery. Radiocontrast injected and right coronary angiogram was performed. Pigtail inserted into left ventricle across the aortic valve. Using the hand injection, LV angiogram was performed. A 6-[place] MEGHAN catheter was engaged into CASTELLANOS graft. CASTELLANOS angiogram was performed. 6-[place] MEGHAN catheter engaged into right subclavian artery. Right subclavian angiogram was performed. A 5 [place] Omniflex catheter inserted into the abdominal aorta. Using the power injector, abdominal angiogram and bilateral iliac angiogram, and bilateral common femoral angiogram were performed. The patient tolerated the procedure well. Postprocedure, the sheath was pulled manually. Excellent hemostasis accomplished. FINDINGS: 1. Prior stent in the left main coronary artery is patent. 2. Prior stent in the proximal LAD is patent, mid LAD has 50% nonobstructive stenosis. Distal LAD is patent. Diagonal branches are patent. 3. Left circumflex and obtuse marginal branches are patent. 4. Right coronary artery is small lumen artery. However, it is patent. 5. CASTELLANOS graft is narrow and atretic. 6. MACI graft is occluded. 7. LV ejection fraction is approximately 60%. No wall motion abnormalities noted. EDP is 14. No gradient across the aortic valve. 8. Abdominal aorta is normal. 9. Bilateral iliac arteries demonstrate fibromuscular dysplasia. CONCLUSION: 1. The patient has a history of prior anterior wall ST-elevation myocardial infarction, prior stent in the left main coronary artery and proximal LAD is patent. 2. Normal LV systolic function. 3. Bilateral fibromuscular dysplasia in the bilateral iliac arteries. RECOMMENDATION: Recommend medical management. Tom Narvaez MD
== END 2017-01-26 11:46 | disposition home or self-care (01) ==
LOC: C.ER 13:19 → C.9E 15:14 → C.5S 17:11
PROVIDERS: ADMIT Hospitalist; ATTEND Hospitalist
DX: I25.110 Atherosclerotic heart disease of native coronary artery with unstable angina pectoris (principal); D50.9 Iron deficiency anemia, unspecified; I10 Essential (primary) hypertension; E78.00 Pure hypercholesterolemia, unspecified; I25.2 Old myocardial infarction; Z95.5 Presence of coronary angioplasty implant and graft
CPT/HCPCS: 36415; 71010; 80048; 80053; 80061; 83036; 83735; 83880; 84100; 84484; 85025; 93005; 93306; 93459; 93567; 94770; 99285; C1758; C1769; C1887; G0378; J1644; J2250; J3010; J7040; Q9967